=== PATIENT | male | born 1965 | race Caucasian/White ===

== ENCOUNTER 2020-09-06 12:39 | Emergency (ER) | payer OTHER ==
[2020-09-06 13:44] LABS: HEMOGLOBIN 12.1 gm/dl (14.0-17.5); RED BLOOD COUNT 3.46 M/UL (4.20-5.50)
[2020-09-07 10:14] LABS: HBSAG SCREEN Negative (Negative); HEP A AB, IGM Negative (Negative); HEP B CORE AB, IGM Negative (Negative); HEP C VIRUS AB <0.1 (0.0-0.9)
== END 2020-09-06 17:00 | disposition home or self-care (01) ==
LOC: ER1 12:39
DX: K74.60 Unspecified cirrhosis of liver (principal); I10 Essential (primary) hypertension
CPT/HCPCS: 80053; 80074; 80076; 82140; 82248; 83605; 85025; 85610; 85730; 99284; Q9967